=== PATIENT | female | born 1940 | race Caucasian/White ===

== ENCOUNTER 2017-08-18 12:15 | Outpatient (CLI) | payer MEDICARE | END 2017-08-18 12:16 | disposition home or self-care (01) | LOC: BICMAMMO 12:15 | PROVIDERS: ATTEND Family Medicine | DX: Z12.31 Encounter for screening mammogram for malignant neoplasm of breast (principal) | CPT/HCPCS: 77063; 77067 ==

== ENCOUNTER 2017-12-01 10:29 | Outpatient (CLI) | payer MEDICARE | END 2017-12-01 10:30 | disposition home or self-care (01) | LOC: BICRAD 10:29 | PROVIDERS: ATTEND Family Medicine | DX: R10.2 Pelvic and perineal pain (principal); M16.11 Unilateral primary osteoarthritis, right hip; M47.896 Other spondylosis, lumbar region | CPT/HCPCS: 72170 ==

== ENCOUNTER 2018-02-03 16:39 | Observation (INO) | payer MEDICARE, OTHER ==
[~2018-02-03 16:39] MED LIST: ISOVUE-370 76%-LOCM 1 ML ONE
[2018-02-03 17:00] LABS: #Basophils 0.1 thou/uL (0.0-0.2); #Eosinphils 0.2 thou/uL (0.0-0.7); #Lymphocytes 3.3 thou/uL (1.20-3.40); #Monocytes 0.8 thou/uL (0.11-0.59); #Neutrophils 3.6 thou/uL (1.40-6.50); %Eosinophils 2.4 % (0.0-10.0); %Lymphocytes 40.9 % (21.0-51.0); %Monocytes 10.4 % (0.0-10.0); %Neutrophils 45.3 % (42.0-75.0); Hemoglobin 13.7 g/dL (12.0-16.0); Mean Corpuscular HGB CONC 34.1 g/dL (32.0-36.0); Mean Corpuscular Hemoglobin 29.4 pg (27.0-31.0); Mean Corpuscular Volume 86.4 fL (78.0-98.0); Mean Platelet Volume 6.9 fL (7.4-10.4); Platelet Count 161 thou/uL (130-400); Red Blood Cell (RBC) Count 4.64 mill/uL (4.20-5.40)
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
[2018-02-03 17:23] LABS: ALT (SGPT) 18 U/L (8-55); AST (SGOT) 24 U/L (5-34); Albumin 3.9 g/dL (3.4-4.8); Alkaline Phosphatase 69 U/L (40-150); Anion Gap 14 mmol/L (10-20); BUN (Urea Nitrogen) 23 mg/dL (9.8-20.1); Bilirubin, Total 0.5 mg/dL (0.2-1.2); Calc. Creatinine Clearance 0 mL/min (70-130); Carbon Dioxide 22 mmol/L (23-31); Chloride 106 mmol/L (98-107); Estimated GFR-MDRD 62; Globulin 2.6 g/dL (2.4-3.5); Glucose 107 mg/dL (83-110); Lipase 52 U/L (8-78); Potassium 4.6 mmol/L (3.5-5.1); Protein, Total 6.5 g/dL (6.0-8.3); Sodium 137 mmol/L (136-145)
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
[2018-02-03] MEDS ORDERED: Ondansetron HCl/PF 4 MG/2 ML Vial ONE (17:38)
[2018-02-03] MEDS ORDERED: Acetaminophen 500 MG TAB ONE (17:56)
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
[2018-02-03] MEDS ORDERED: Ondansetron ODT 4 MG TAB PO PRN (20:06)
[2018-02-03] MEDS ORDERED: hydrALAZINE 20 MG/ML VIAL SLOW IVP PRN (20:06)
[2018-02-03] MEDS ORDERED: Acetaminophen 1,000 MG in Premix Bag 1 BAG IVPB SCH (20:06)
[2018-02-03] MEDS ORDERED: Dextrose 50% Abboject 50 ML SYRINGE SLOW IVP PRN (20:06)
[2018-02-03] MEDS ORDERED: Ondansetron HCl/PF 4 MG/2 ML Vial IVP PRN (20:06)
[2018-02-03] MEDS ORDERED: Rib Fracture Protocol PO SCH (20:06)
[2018-02-03] MEDS ORDERED: Dextrose 5% in Water 1,000 ML IV PRN (20:06)
[2018-02-03] MEDS ORDERED: Ketorolac Tromethamine 30 MG/ML VIAL IVP SCH (20:15)
[2018-02-03] MEDS ORDERED: Gabapentin 100 MG CAP PO SCH (21:45)
[2018-02-03] MEDS ORDERED: Cyclobenzaprine 10 MG TAB PO PRN (21:45)
[2018-02-03 21:51] VITALS: BMI 27.3
[2018-02-03] MEDS: Famotidine 20 MG TAB PO SCH (21:56)
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
[2018-02-03] MEDS: Ibuprofen 600 MG TAB PO SCH (23:36)
[2018-02-04] MEDS: traMADol HCl 50 MG TAB PO SCH ×2 (01:14→05:51)
[2018-02-04 04:27] LABS: #Basophils 0.1 thou/uL (0.0-0.2); #Eosinphils 0.1 thou/uL (0.0-0.7); #Lymphocytes 1.6 thou/uL (1.20-3.40); #Monocytes 0.6 thou/uL (0.11-0.59); #Neutrophils 3.4 thou/uL (1.40-6.50); %Basophils 1.2 % (0.0-1.0); %Lymphocytes 27.3 % (21.0-51.0); %Monocytes 11.1 % (0.0-10.0); %Neutrophils 58.4 % (42.0-75.0); Hemoglobin 12.5 g/dL (12.0-16.0); Mean Corpuscular HGB CONC 34.6 g/dL (32.0-36.0); Mean Corpuscular Hemoglobin 30.1 pg (27.0-31.0); Mean Corpuscular Volume 86.9 fL (78.0-98.0); Mean Platelet Volume 7.2 fL (7.4-10.4); Platelet Count 135 thou/uL (130-400); Red Blood Cell (RBC) Count 4.16 mill/uL (4.20-5.40); White Blood Cell (WBC) Count 5.8 thou/uL (4.8-10.8)
[2018-02-04 04:33] LABS: Anion Gap 14 mmol/L (10-20); BUN (Urea Nitrogen) 21 mg/dL (9.8-20.1); Calc. Creatinine Clearance 65 mL/min (70-130); Calcium 8.4 mg/dL (7.8-10.44); Carbon Dioxide 23 mmol/L (23-31); Chloride 108 mmol/L (98-107); Estimated GFR-MDRD 63; Glucose 129 mg/dL (83-110); Sodium 141 mmol/L (136-145)
[2018-02-04] MEDS: Acetaminophen 500 MG TAB PO SCH ×3 (05:49→18:34)
[2018-02-04] MEDS: Ibuprofen 600 MG TAB PO SCH ×3 (05:51→20:54)
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
[2018-02-04] MEDS ORDERED: traMADol HCl 50 MG TAB PO PRN (08:19)
[2018-02-04] MEDS: Famotidine 20 MG TAB PO SCH ×2 (08:48→20:54)
[2018-02-04] MEDS ORDERED: traMADol HCl 50 MG TAB PO SCH (09:00)
[2018-02-04] MEDS ORDERED: Gabapentin 100 MG CAP PO SCH (09:00)
[2018-02-04] MEDS: Atenolol 25 MG TAB PO SCH ×2 (12:08→16:54)
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
[2018-02-04] MEDS ORDERED: Atenolol 25 MG TAB PO SCH (16:30)
[2018-02-04] MEDS ORDERED: Scopolamine 1.5 mg/72 hour Patch TD SCH (18:00)
[2018-02-04] MEDS ORDERED: Lisinopril 2.5 MG TAB PO SCH (21:00)
[2018-02-04] MEDS ORDERED: Rosuvastatin 20 MG TAB PO SCH (21:00)
[2018-02-05] MEDS: Acetaminophen 500 MG TAB PO SCH ×2 (01:07→05:13)
[2018-02-05] MEDS: Ibuprofen 600 MG TAB PO SCH (06:47)
[2018-02-05] MEDS: Famotidine 20 MG TAB PO SCH (08:25)
[2018-02-05] MEDS ORDERED: Acetaminophen/Codeine 30-300mg Tablet PO PRN ×2 (09:48)
[2018-02-05] MEDS ORDERED: Bisacodyl 10 MG SUPP PR SCH (10:00)
[2018-02-05] MEDS: Atenolol 25 MG TAB PO SCH (10:23)
[2018-02-05 11:50] VITALS: BP 109/72; TEMP 98.6
--- NOTE | 2018-02-05 16:38 | EKG ---
Test Reason : FACILITATE Blood Pressure : / mmHG Vent. Rate : 088 BPM Atrial Rate : 088 BPM P-R Int : 190 ms QRS Dur : 074 ms QT Int : 364 ms P-R-T Axes : 065 025 054 degrees QTc Int : 440 ms Normal sinus rhythm Normal ECG Confirmed by GLADYS ROMERO ([id number]), multimedia editor HENRY LUCIA ([id number]) on 02/05/2018 4:37:31 PM Referred By: Confirmed By:GLADYS ROMERO
== END 2018-02-05 11:53 | disposition home or self-care (01) ==
LOC: ERS 16:39 → SURG A 19:28
PROVIDERS: ADMIT Surgery; ATTEND Surgery
DX: S22.42XA Multiple fractures of ribs, left side, initial encounter for closed fracture (principal); J98.4 Other disorders of lung; G89.4 Chronic pain syndrome; E78.5 Hyperlipidemia, unspecified; E78.00 Pure hypercholesterolemia, unspecified; I10 Essential (primary) hypertension; E04.9 Nontoxic goiter, unspecified; R91.1 Solitary pulmonary nodule; Z79.899 Other long term (current) drug therapy; V89.2XXA Person injured in unspecified motor-vehicle accident, traffic, initial encounter
CPT/HCPCS: 70450; 71045; 71260; 72125; 74177; 80048; 80053; 83690; 85025 ×2; 93005; 94640; 96374; 96375; 97139 ×3; 99285; G0378 ×2; G8978; G8979; G8987; G8988; G8989; 36415; G0390; J1885; J2270; J2405; J7620

== ENCOUNTER 2018-02-27 19:54 | Emergency (ER) | payer MEDICARE ==
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
== END 2018-02-27 21:25 | disposition home or self-care (01) ==
LOC: ERS 19:54
DX: I80.3 Phlebitis and thrombophlebitis of lower extremities, unspecified (principal); E78.5 Hyperlipidemia, unspecified; I10 Essential (primary) hypertension

== ENCOUNTER 2020-01-01 03:11 | Emergency (ER) | payer MEDICARE | END 2020-01-01 03:46 | disposition home or self-care (01) | LOC: ERS 03:11 | DX: I10 Essential (primary) hypertension (principal); E78.5 Hyperlipidemia, unspecified; E78.00 Pure hypercholesterolemia, unspecified; Z79.899 Other long term (current) drug therapy | CPT/HCPCS: 99283 ==

== ENCOUNTER 2022-04-16 11:25 | Outpatient (CLI) | payer MEDICARE, OTHER | END 2022-04-16 11:26 | disposition home or self-care (01) | LOC: BICMAMMO 11:25 | PROVIDERS: ATTEND Family Medicine | DX: Z12.31 Encounter for screening mammogram for malignant neoplasm of breast (principal); M81.0 Age-related osteoporosis without current pathological fracture | CPT/HCPCS: 77063; 77067; 77080 ==

== ENCOUNTER 2024-04-05 14:47 | Outpatient (CLI) | payer MEDICARE | END 2024-04-05 14:48 | disposition home or self-care (01) | LOC: BICMAMMO 14:47 | PROVIDERS: ATTEND Physician Assistant | DX: Z12.31 Encounter for screening mammogram for malignant neoplasm of breast (principal); Z78.0 Asymptomatic menopausal state | CPT/HCPCS: 77063; 77067; 77080 ==